=== PATIENT | female | born 1960 | race Caucasian/White ===

== ENCOUNTER → 2021-12-01 10:11 | Outpatient (CLI) | payer OTHER, MEDICAID, SELFPAY ==
--- NOTE | 2021-12-01 | DI.US.S_ITS ---
PROCEDURE: US FINE NEEDLE ASPIRATION INDICATIONS: THYROID NODULES TECHNIQUE: The indications, alternatives, benefits, risks, and complications of the procedure were explained to the patient. Written informed consent was obtained and placed in the chart. The thyroid region was examined sonographically and a site was chosen for ultrasound guided percutaneous sampling. The skin was prepared and draped in the usual fashion, and anesthetized with 1% lidocaine infiltrated from the skin down to the thyroid gland. Multiple passes were then performed, with contents emptied into an appropriate pathology specimen container. A bandage was applied to the area of access at completion of the study. COMPARISON: Outside Film, US, US SOFT TISSUE HEAD OR NECK, 09/28/2021, 11:30. [facility], RG, US SOFT TISSUE HEAD OR NECK, 09/28/2021, 11:30. FINDINGS: Location(s) of lesion(s) sampled: Right inferior pole Benson: 25 gauge hypodermic needles x 8; 22 gauge hypodermic needles x 2. Number of passes: 10 Medications: 1% lidocaine for local anaesthesia. Complications: None. IMPRESSION: Successful ultrasound-guided thyroid nodule fine needle aspiration, with cytology results pending. Please see chart below for management recommendations based on cytology results. [facility] ReportingRecommendationsNon-diagnostic* Repeat US-guided FNA, with on-site cytology evaluation if possible. * Repeated non-diagnostic nodules without high suspicion US features: close observation vs surgical consult. * Consider surgery if nodule has high suspicion US features, grows >20% in 2 dimensions on followup, or patient has clinical risk factors for malignancy. Benign* If nodule has high suspicion US features: repeat US and FNA within 12 months. * If nodule has low to intermediate suspicion US features: repeat US at 12-24 months. If nodule grows (20% increase in at least 2 dimensions, with minimal increase of 2 mm or >50% change in volume), or development of new suspicious US features, then repeat FNA or continue followup. * If nodule has very low suspicion US features: followup US at >24 months. Atypia of undetermined significance, follicular lesion of undetermined significanceRepeat FNA, molecular testing, followup US, or surgical consult.Follicular neoplasm, suspicious for follicular neoplasmSurgical consult; also consider molecular testing. Suspicious for malignancySurgical consult.MalignantSurgical consult. Dictated by: Gabe Cosby M.D. on 12/01/2021 at 14:31 Approved by: Gabe Cosby M.D. on 12/01/2021 at 14:32
--- NOTE | 2021-12-01 | PATH_ITS ---
Note [facility] Accession Number: [id number] TESTS RESULT FLAG UNITS REF RANGE LAB Clinician Provided Cytology Information No. of containers..08 Previously Prepared Cytology Slide 35 Unknown Storage/container code(s) Source: RIGHT THYROID NODULE DIAGNOSIS: RIGHT THYROID NODULE INADEQUATE, INSUFFICIENT CELLS FOR STUDY. [place] CATEGORY I. NONDIAGNOSTIC: OBSCURING BLOOD. Pathologist ICD10: 02 E05.20 Signed out by: Jennifer Montes MD, Pathologist NPI- [id number] Performed by: Mao Miranda, Adoption Specialist ([facility]) Gross description: 01 30 CC, ORANGE, CLOUDY RECIEVED: IN CYTOLYT WITH 9 ALCOHOL FIXED AND 9 QUICK STAINED SLIDES ALSO 1 RNA VIAL WAS RECEIVED FOR FURTHER TESTING. /VD 12/02/2021 06 Local FLAG LEGEND: L-Low Normal,H-High Normal,LL-Alert Low,HH-Alert High <-Panic Low,>-Panic High,A-Abnormal,AA-Critical Abnormal Performed at: 01 =Z [facility] Cytology [address] [place] [address], [place] [address] Jamin Collins MD, 02 [facility] [address] [place] [address] Dafne Hicks MD, Specimen Comment: A courtesy copy of this report has been sent to [phone] Specimen Comment: A duplicate report has been generated due to demographic updates. Performed at: 01 [facility] [address] [facility], [place], [place] [id number] MD Jamin Collins MD Phone: [phone]
== END ==
PROVIDERS: Family Provider Anesthesiology Pain Medicine; PCP Internal Medicine; Referring Provider Otolaryngology; Visit Provider Otolaryngology
DX: E04.2 Nontoxic multinodular goiter (principal)
CPT/HCPCS: 10005

== ENCOUNTER → 2022-02-28 16:55 | Outpatient (CLI) | payer OTHER, MEDICAID, SELFPAY ==
--- NOTE | 2022-02-28 16:57 | DI.MRI.S_ITS ---
PROCEDURE: MR KNEE LT WO CON INDICATIONS: UNSPECIFIED INTERNAL DERANGEMENT OF LEFT KNEE TECHNIQUE: Noncontrast sagittal PD fast spin echo and T2 fast spin echo with fat saturation, sagittal 3-D FLASH with fat saturation; coronal T1 spin echo and PD fast spin echo with fat saturation, and axial PD fast spin echo with fat saturation through the knee. COMPARISON: Outside Film, CR, XR KNEE 1 OR 2 VIEWS LEFT, 01/30/2022, 15:30. FINDINGS: Image quality: Excellent. Menisci: There is horizontal tear involving the anterior horn and body of the lateral meniscus. Small tear of the free edge of the body of the medial meniscus is suspected. There is intrasubstance degeneration involving the posterior horn of the medial meniscus. Cruciate ligaments: The anterior and posterior cruciate ligaments appear intact. Medial structures: The medial collateral ligament appears intact. The semimembranosus tendon insertions and meniscocapsular junction appear intact. Visualized portions of the pes anserinus tendons appear normal. No abnormal bursal fluid. Lateral structures: The lateral collateral ligament and the biceps femoris tendon appear intact. The popliteus tendon appears normal. Iliotibial band appears normal. Anterior structures: The quadriceps and patellar tendons appear intact. Patellar alignment is normal. No femoral trochlear dysplasia or ventral trochlear prominence. No edema in the infrapatellar fat pad. Bones and cartilage: No bone marrow contusions or fractures. Mild tricompartmental cartilage thinning and fibrillation. Joint space: There is moderate-sized knee joint effusion. No Zapata's cyst. Normal appearing synovial plicae are incidentally noted. IMPRESSION: 1. Horizontal tear of the anterior horn body of the lateral meniscus. 2. Suspect small tear of the free edge of the body of the medial meniscus. 3. Intrasubstance degeneration of the posterior horn of the medial meniscus. 4. Mild tricompartmental cartilage thinning and fibrillation. 5. Moderate-sized knee joint effusion. Dictated by: Gabe Cosby M.D. on 03/01/2022 at 13:23 Approved by: Gabe Cosby M.D. on 03/01/2022 at 13:30
== END ==
PROVIDERS: Family Provider Anesthesiology Pain Medicine; PCP Internal Medicine; Referring Provider Internal Medicine; Visit Provider Internal Medicine
DX: M23.92 Unspecified internal derangement of left knee (principal); S83.282A Other tear of lateral meniscus, current injury, left knee, initial encounter; M25.462 Effusion, left knee
CPT/HCPCS: 73721